=== PATIENT | male | born 1970 ===

== ENCOUNTER 2018-06-09 20:00 | Emergency (ER) | payer OTHER ==
[2018-06-09 23:30] VITALS: BP 138/86; PULSE 73; RESP 20; TEMP 98.1; O2SAT 97
[2018-06-09] MEDS ORDERED: Naproxen 500 MG TAB PO STA (23:37)
[2018-06-10] MEDS ORDERED: Naproxen 500 MG TAB PO ONE (00:33)
[2018-06-10 01:23] LABS: BASO # 0.1 K/uL (0.0-0.2); BASO % 0.8 % (0.0-2.0); EOS # 0.2 K/uL (0.0-0.7); EOS % 2.5 % (0.0-4.0); HEMOGLOBIN 14.8 g/dL (12.0-18.0); LYMPH # 3.4 K/uL (1.0-4.3); LYMPH % 43.9 % (20.0-40.0); MEAN CELL VOLUME 83.1 fl (80.0-94.0); MEAN CORPUSCULAR HEMOGLOBIN 29.2 pg (27.0-31.0); MEAN CORPUSCULAR HGB CONC 35.1 g/dL (33.0-37.0); MEAN PLATELET VOLUME 6.8 fl (7.2-11.7); MONO # 0.8 K/uL (0.0-0.8); MONO % 10.9 % (0.0-10.0); NEUT # 3.2 K/uL (1.8-7.0); NEUT % 41.9 % (50.0-75.0); NRBC % 0.1 % (0.0-0.0); RBC 5.08 Mil/uL (4.40-5.90); RED CELL DISTRIBUTION WIDTH 13.2 % (11.5-14.5); WHITE BLOOD COUNT 7.7 K/uL (4.8-10.8)
--- NOTE | 2018-06-10 01:26 | ED PDOC ---
Lower Extremity Pain/Injury Time Seen by Provider: 06/09/18 23:28 Chief Complaint (Nursing): Lower Extremity Problem/Injury Chief Complaint (Provider): Lower Extremity Problem/Injury History Per: Patient History/Exam Limitations: no limitations Onset/Duration Of Symptoms: Sudden Onset (today) Current Symptoms Are (Timing): Still Present Additional Complaint(s): 48 year old male with a history of DM and HTN presents to the ED with pain to posterior aspect of right knee that radiates to his calf beginning this evening. Patient reports he was going upstairs when pain developed suddenly as he was trying to take an extra step up. Otherwise: (-) numbness, (-) other injury, (-) trauma, (-) fever, (-) swelling, (-) recent hospitalization/ surgeries/travel, (-) shortness of breath, (-) chest pain. Past Medical History Reviewed: Historical Data, Nursing Documentation, Vital Signs Vital Signs: Last Vital Signs Temp 98.1 F 06/09/18 23:27 Pulse 73 06/09/18 23:27 Resp 20 06/09/18 23:27 BP 138/86 06/09/18 23:27 Pulse Ox 97 06/09/18 23:27 - Medical History PMH: Diabetes, HTN - Surgical History Surgical History: No Surg Hx - Family History Family History: States: Unknown Family Hx - Home Medications Home Medications: Ambulatory Orders Medication Instructions Recorded Naproxen 500 mg PO BID #30 tab 06/10/18 - Allergies Allergies/Adverse Reactions: Allergies Allergy/AdvReac Type Severity Reaction Status Date / Time No Known Allergies Allergy Verified 06/09/18 23:27 Review of Systems ROS Statement: Except As Marked, All Systems Reviewed And Found Negative Musculoskeletal: Positive for: Leg Pain (right knee) Physical Exam - Physical Exam Comments: GENERAL APPEARANCE: Patient is awake, alert, oriented x 3, in no acute distress. SKIN: Warm, dry; (-) cyanosis. EYES: (-) conjunctival pallor. ENMT: Mucous membranes moist. NECK: (-) tenderness, (-) stiffness, (-) lymphadenopathy. CHEST AND RESPIRATORY: (-) rales, (-) rhonchi, (-) wheezes; breath sounds equal bilaterally. HEART AND CARDIOVASCULAR: (-) irregularity; (-) murmur, (-) gallop. ABDOMEN AND GI: Soft; (-) tenderness; (-) palpable mass. BACK: (-) direct bony tenderness, (-) deformity. EXTREMITIES: (+) point tenderness to posterior aspect of right knee, (-) calf tenderness or edema, (+) FROM of all joints, (-) deformity. Distal pulses good bilaterally. NEURO AND PSYCH: Mental status as above. Intact sensation bilaterally; normal strength in extension of the knees, plantar and dorsiflexion of the toes. - Laboratory Results Result Diagrams: 06/09/18 01:06 06/10/18 01:06 - ECG O2 Sat by Pulse Oximetry: 97 (RA) Pulse Ox Interpretation: Normal Medical Decision Making Medical Decision Makin:37 --CMP --CBC --Naproxen 500 mg PO --Right knee XR XR R knee : +effusion, no fracture, no dislocation, as read by HANS. Labs reviewed : K 3.4, rest of the labs wnl. X-ray and lab results discussed with the patient in great detail. Patient given KCl PO. Kb wrap and knee immobilizer applied. Patient instructed to follow-up with orthopedic referral provided in 1-2 days without fail. Advised to take medication as prescribed. Rest, ice and elevate the joint. Return to the emergency room at any time for any new or worsening symptoms. Patient states he fully agrees with and understands discharge instructions. States that he agrees with the plan and disposition. Verbalized and repeated discharge instructions and plan. I have given the patient opportunity to ask any additional questions. Scribe Attestation: Documented by Marta Abarca, acting as a scribe for Keesha Mirza PA-C Provider Scribe Attestation: All medical record entries made by the Scribe were at my direction and personally dictated by me. I have reviewed the chart and agree that the record accurately reflects my personal performance of the history, physical exam, medical decision making, and the department course for this patient. I have also personally directed, reviewed, and agree with the discharge instructions and disposition. Disposition - Clinical Impression Clinical Impression: Knee pain, Muscle strain - Patient ED Disposition Is Patient to be Admitted: No Counseled Patient/Family Regarding: Studies Performed, Diagnosis, Need For Followup, Rx Given - Disposition Referrals: Tunde Singletary III, MD [Staff Provider] - Disposition: Routine/Home Disposition Time: 01:45 Condition: STABLE Additional Instructions: Thank you for letting us take care of you today. You were treated for R knee pain, muscle strain. The emergency medical care you received today was directed towards the acute presenting symptoms. Rest, ice and elevate. If you were prescribed any medication, please fill it and give as directed. It may take several days for your symptoms to resolve. Return to the Emergency Department at any time if symptoms worsen, do not improve, or if any other problems arise. Please contact your doctor in 2 days for re-evaluation and follow up / or call one of the physicians/clinics you have been referred to that are listed on the Patient Visit Information form that is included in your discharge packet. Bring any paperwork you were given at discharge with you along with any medications to your follow up visit. Our treatment cannot replace ongoing medical care by a primary care provider (PCP) outside of the emergency department. Thank you for allowing the [facility] team to be part of your care today. If you had an X-Ray : A Radiologist will review the ED reading if any change in treatment is needed we will contact you. 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
[2018-06-10 01:35] LABS: ALB/GLOB RATIO 1.4 (1.0-2.1); ALT/SGPT 55 U/L (21-72); AST/SGOT 28 U/L (17-59); BLOOD UREA NITROGEN 19 mg/dl (9-20); CALCIUM 9.1 mg/dL (8.4-10.2); GFR NON-AFRICAN AMERICAN > 60
[2018-06-10] MEDS ORDERED: Potassium Chloride 20 mEq ER Tab PO ONE (01:39)
--- NOTE | 2018-06-10 09:20 | RAD ---
Date of service: 06/10/2018 PROCEDURE: Right Knee Radiographs. HISTORY: pain COMPARISON: None. FINDINGS: BONES: No acute fracture. JOINTS: Unremarkable. JOINT EFFUSION: None. OTHER FINDINGS: None. IMPRESSION: No demonstrated fracture or dislocation.
== END 2018-06-10 02:30 | disposition home or self-care (01) ==
LOC: H.ER 22:44
DX: S86.911A Strain of unspecified muscle(s) and tendon(s) at lower leg level, right leg, initial encounter (principal); M25.561 Pain in right knee; E11.9 Type 2 diabetes mellitus without complications; I10 Essential (primary) hypertension